=== PATIENT | female | born 1975 | race Caucasian/White ===

== ENCOUNTER 2017-11-29 10:37 | Emergency (ER) | payer OTHER ==
[2017-11-29] MEDS: SOD CHLORIDE 0.9% 1,000 ML IV (16:37)
[2017-11-29 16:59] LABS: ADD MAN DIFF? NO
[2017-11-29 17:07] LABS: WHITE BLOOD COUNT 14.4 10^3/ul (4.8-10.8)
[2017-11-29 17:07] LABS: BASOPHILS % 0.3 % (0.0-2.0); EOSINOPHILS # 0.1 10^3/ul (0.0-0.5); EOSINOPHILS % 0.5 % (0.0-7.0); HEMATOCRIT 36.9 % (37.0-47.0); HEMOGLOBIN 12.6 g/dl (12.0-16.0); LYMPHOCYTES # 1.6 10^3/ul (0.8-2.9); MEAN CORPUSCULAR HEMOGLOBIN 28.1 pg (29.0-33.0); MEAN CORPUSCULAR HGB CONC 34.1 g/dl (32.0-37.0); MEAN CORPUSCULAR VOLUME 82.2 fl (82.0-101.0); MEAN PLATELET VOLUME 10.4 fl (7.4-10.4); MONOCYTE # 0.6 10^3/ul (0.3-0.9); NEUTROPHIL # 12.1 10^3/ul (1.6-7.5); NEUTROPHILS % 83.9 % (39.0-77.0); PLATELET COUNT 254 10^3/UL (140-415); RED BLOOD COUNT 4.49 10^6/ul (4.20-5.40); RED CELL DISTRIBUTION WIDTH 13.5 % (11.5-14.5)
[2017-11-29 17:20] LABS: ALANINE AMINOTRANSFERASE 39 IU/L (13-69); ALBUMIN 4.1 g/dl (3.3-4.9); ALBUMIN/GLOBULIN RATIO 1.17; ALKALINE PHOSPHATASE 95 IU/L (42-121); ANION GAP 16 (8-16); ASPARTATE AMINO TRANSFERASE 29 IU/L (15-46); BILIRUBIN,INDIRECT 0.8 mg/dl (0-1.1); BILIRUBIN,TOTAL 0.8 mg/dl (0.2-1.3); BLOOD UREA NITROGEN 9 mg/dl (7-20); CALCIUM 8.8 mg/dl (8.4-10.2); CARBON DIOXIDE 22 mmol/L (21-31); CHLORIDE 104 mmol/L (97-110); CREATININE 0.62 mg/dl (0.44-1.00); GLUCOSE 118 mg/dl (70-220); LIPASE 86 U/L (23-300); POTASSIUM 3.7 mmol/L (3.5-5.1); SODIUM 138 mmol/L (135-144); TOTAL PROTEIN 7.6 g/dl (6.1-8.1)
[2017-11-29 19:05] LABS: ADD UMIC YES; UR ASCORBIC ACID NEGATIVE (NEGATIVE); UR BACTERIA FEW /HPF (NONE SEEN); UR BILIRUBIN (Dip) NEGATIVE (NEGATIVE); UR BLOOD (Dip) 3+ mg/dL (NEGATIVE); UR CLARITY CLOUDY (CLEAR); UR COLOR RED (YELLOW); UR GLUCOSE (Dip) NEGATIVE (NEGATIVE); UR KETONES (Dip) 1+ mg/dL (NEGATIVE); UR LEUKOCYTE ESTERASE (Dip) NEGATIVE Leu/ul (NEGATIVE); UR MUCUS MODERATE /HPF (NONE SEEN); UR NITRITE (Dip) NEGATIVE (NEGATIVE); UR RBC > 182 /HPF (0-5); UR SPECIFIC GRAVITY (Dip) 1.017 (1.003-1.030); UR TOTAL PROTEIN (Dip) 2+ mg/dl (NEGATIVE); UR UROBILINOGEN (Dip) NEGATIVE (NEGATIVE); UR WBC > 182 /HPF (0-5)
== END 2017-11-29 20:19 | disposition home or self-care (01) ==
LOC: FTE 10:37
DX: O20.9 Hemorrhage in early pregnancy, unspecified (principal); O10.012 Pre-existing essential hypertension complicating pregnancy, second trimester; O24.112 Pre-existing type 2 diabetes mellitus, in pregnancy, second trimester; Z3A.18 18 weeks gestation of pregnancy; Z79.4 Long term (current) use of insulin
CPT/HCPCS: 36415; 80053; 81001; 83690; 84702; 85025; 86900; 86901; 88305; 93005; 99285-25

== ENCOUNTER 2017-11-29 13:31 | Outpatient (CLI) | payer OTHER | END 2017-11-29 15:30 | disposition home or self-care (01) | LOC: OBT 13:31 → L-D 13:31 → OBT 15:30 | DX: O09.523 Supervision of elderly multigravida, third trimester (principal); Z3A.40 40 weeks gestation of pregnancy | CPT/HCPCS: 76805; 82962 ==

== ENCOUNTER 2019-05-05 14:41 | Inpatient (IN) | payer OTHER ==
[2019-05-05] MEDS ORDERED: MISOPROSTOL 200 MCG TAB PR (16:00)
[2019-05-05] MEDS ORDERED: LIDOCAINE 1% (MPF) 30 ML INJ INJ (16:00)
[2019-05-05] MEDS ORDERED: OXYTOCIN 30 UNITS/LR 500 ML IV (16:00)
[2019-05-05] MEDS ORDERED: METHYLERGONOVINE 0.2 MG INJ IM (16:00)
[2019-05-05] MEDS ORDERED: CARBOPROST 250 MCG INJ IM (16:00)
[2019-05-05] MEDS ORDERED: BUTORPHANOL 2 MG INJ IV ×2 (16:00)
[2019-05-05 16:39] LABS: ADD MAN DIFF? NO
[2019-05-05 16:43] LABS: WHITE BLOOD COUNT 9.3 10^3/ul (4.8-10.8)
[2019-05-05 16:43] LABS: BASOPHILS % 0.2 % (0.0-2.0); EOSINOPHILS # 0.1 10^3/ul (0.0-0.5); HEMATOCRIT 35.8 % (37.0-47.0); HEMOGLOBIN 12.4 g/dl (12.0-16.0); LYMPHOCYTES # 1.8 10^3/ul (0.8-2.9); LYMPHOCYTES % 19.5 % (15.0-51.0); MEAN CORPUSCULAR HEMOGLOBIN 28.6 pg (29.0-33.0); MEAN CORPUSCULAR HGB CONC 34.6 g/dl (32.0-37.0); MEAN CORPUSCULAR VOLUME 82.7 fl (82.0-101.0); MEAN PLATELET VOLUME 11.1 fl (7.4-10.4); MONOCYTE # 0.6 10^3/ul (0.3-0.9); NEUTROPHIL # 6.8 10^3/ul (1.6-7.5); NEUTROPHILS % 72.9 % (39.0-77.0); PLATELET COUNT 208 10^3/UL (140-415); RED BLOOD COUNT 4.33 10^6/ul (4.20-5.40)
[2019-05-05] MEDS ORDERED: DEXTROSE 5%-LR 1,000 ML IV (17:00)
[2019-05-05 17:03] LABS: PROTIME 11.2 Sec (11.9-14.9); PT RATIO 0.9
[2019-05-05 17:08] LABS: ALANINE AMINOTRANSFERASE 32 IU/L (13-69); ALBUMIN 3.5 g/dl (3.3-4.9); ALKALINE PHOSPHATASE 131 IU/L (42-121); ASPARTATE AMINO TRANSFERASE 44 IU/L (15-46); BILIRUBIN,INDIRECT 0.5 mg/dl (0-1.1); BILIRUBIN,TOTAL 0.5 mg/dl (0.2-1.3); TOTAL PROTEIN 6.9 g/dl (6.1-8.1)
[2019-05-05 17:09] LABS: ALANINE AMINOTRANSFERASE 39 IU/L (13-69); ALBUMIN 3.3 g/dl (3.3-4.9); ALBUMIN/GLOBULIN RATIO 1.06; ALKALINE PHOSPHATASE 129 IU/L (42-121); ANION GAP 11 (5-13); ASPARTATE AMINO TRANSFERASE 45 IU/L (15-46); BILIRUBIN,INDIRECT 0.5 mg/dl (0-1.1); BILIRUBIN,TOTAL 0.5 mg/dl (0.2-1.3); BLOOD UREA NITROGEN 15 mg/dl (7-20); CALCIUM 8.9 mg/dl (8.4-10.2); CARBON DIOXIDE 17 mmol/L (21-31); CHLORIDE 109 mmol/L (97-110); Estimated GFR > 60 mL/min (>60); GLUCOSE 159 mg/dl (70-220); POTASSIUM 4.2 mmol/L (3.5-5.1); SODIUM 137 mmol/L (135-144); TOTAL PROTEIN 6.4 g/dl (6.1-8.1)
[2019-05-05] MEDS: LACTATED RINGER'S 1,000 ML IV ×2 (17:09→22:28)
[2019-05-05] MEDS: AMPICILLIN 2 GM/NS (PMX) 100 ML IV (17:16)
[2019-05-05] MEDS ORDERED: ACCU-CHEK XX ×2 (19:35→21:00)
[2019-05-05] MEDS: LABETALOL 100 MG TAB PO (21:07)
[2019-05-05] MEDS: AMPICILLIN 1 GM/NS (PMX) 50 ML IV (21:08)
[2019-05-05] MEDS ORDERED: DIPHENHYDRAMINE 50 MG INJ IV (22:30)
[2019-05-05] MEDS ORDERED: NALOXONE (0.4 MG/ML) INJ IV (22:30)
[2019-05-05] MEDS ORDERED: TRIMETHOBENZAMIDE 100 MG/ML VIAL IM (22:30)
[2019-05-05] MEDS ORDERED: ONDANSETRON 4 MG INJ IV (22:30)
[2019-05-06] MEDS: LACTATED RINGER'S 1,000 ML IV ×3 (00:59→20:09)
[2019-05-06] MEDS: AMPICILLIN 1 GM/NS (PMX) 50 ML IV ×5 (01:01→17:37)
[2019-05-06] MEDS: FENTAnyl 2MCG/ML-ROPIV 0.2% 100 ML BAG EPI ×3 (03:34→17:38)
[2019-05-06] MEDS: INSULIN ASPART [NOVOLOG] 3 ML PEN SC (05:04)
[2019-05-06] MEDS: OXYTOCIN 30 UNITS/LR 500 ML IV ×3 (09:42→21:03)
[2019-05-06 15:09] LABS: RAPID PLASMA REAGIN NONREACTIVE (NR)
[2019-05-06] MEDS: MINERAL OIL LIGHT 10 ML VIAL TOP (21:04)
[2019-05-06] MEDS: LABETALOL 100 MG TAB PO ×2 (22:03→22:52)
[2019-05-06] MEDS: MISOPROSTOL 50 MCG CAPSULE PO ×3 (22:52→22:53)
[2019-05-06] MEDS: LACTATED RINGER'S 1,000 ML IV* (23:36)
[2019-05-07] MEDS ORDERED: MISOPROSTOL 200 MCG TAB PR
[2019-05-07] MEDS ORDERED: OXYTOCIN 30 UNITS/LR 500 ML IV
[2019-05-07] MEDS ORDERED: DIPHENHYDRAMINE 25 MG CAP PO
[2019-05-07] MEDS ORDERED: ACETAMINOPHEN 325 MG TAB PO
[2019-05-07] MEDS ORDERED: NACL 0.9% 3 ML SYG IV
[2019-05-07] MEDS ORDERED: CARBOPROST 250 MCG INJ IM
[2019-05-07] MEDS ORDERED: ONDANSETRON 4 MG INJ IV
[2019-05-07] MEDS ORDERED: ZOLPIDEM 5 MG TAB PO
[2019-05-07] MEDS ORDERED: morphine 2 MG INJ IV
[2019-05-07] MEDS: IBUPROFEN 600 MG TAB PO ×4 (00:19→17:52)
[2019-05-07] MEDS: WITCH HAZEL/GLYCERIN PAD PR (00:19)
[2019-05-07] MEDS: LANOLIN HPA 1 PKT TOP (00:20)
[2019-05-07] MEDS: LACTATED RINGER'S 1,000 ML IV ×2 (00:30→08:30)
[2019-05-07 00:54] LABS: HEMATOCRIT 32.6 % (37.0-47.0); HEMOGLOBIN 11.1 g/dl (12.0-16.0)
[2019-05-07] MEDS: HYDROCODONE/APAP (5/325) TAB PO (03:26)
[2019-05-07] MEDS ORDERED: LABETALOL HCL 20MG INJ IV (04:00)
[2019-05-07] MEDS: OXYTOCIN 30 UNITS/LR 500 ML IV (04:53)
[2019-05-07] MEDS: ACCU-CHEK XX ×5 (08:35→21:00)
[2019-05-07] MEDS: LACTATED RINGER'S 1,000 ML IV* (08:55)
[2019-05-07] MEDS: SENNA/DOCUSATE NA (8.6MG/50MG) TAB PO ×2 (08:56→20:45)
[2019-05-07] MEDS: metFORMIN 500 MG TAB PO ×3 (08:57→20:45)
[2019-05-07] MEDS: LABETALOL 100 MG TAB PO ×2 (08:58→20:48)
[2019-05-08] MEDS: IBUPROFEN 600 MG TAB PO ×3 (00:33→11:40)
[2019-05-08] MEDS: ACCU-CHEK XX ×2 (07:58→11:50)
[2019-05-08] MEDS: MEASLES,MUMPS,RUBELLA VACCINE INJ SC* (09:00)
[2019-05-08] MEDS: VARICELLA VACCINE LIVE/PF 1,350 UNIT/0.5 ML ML SC* (09:00)
[2019-05-08] MEDS: LABETALOL 100 MG TAB PO (09:45)
[2019-05-08] MEDS: SENNA/DOCUSATE NA (8.6MG/50MG) TAB PO (09:45)
[2019-05-08] MEDS: metFORMIN 500 MG TAB PO ×2 (09:46→13:03)
[2019-05-08] MEDS: DIPHTH/TET/ACEL PERTUSS (ADULT) 0.5 ML VIAL IM* (09:48)
== END 2019-05-08 16:14 | disposition home or self-care (01) | DRG 805 ==
LOC: L-D 14:41 → PP1 05-06 22:48 → L-D 15:25
PROC: 10E0XZZ Delivery of Products of Conception, External Approach (ICD-10-PCS; principal; 2019-05-06)
PROC: 0KQM0ZZ Repair Perineum Muscle, Open Approach (ICD-10-PCS; 2019-05-06)
DX: O10.92 Unspecified pre-existing hypertension complicating childbirth (principal); O24.12 Pre-existing type 2 diabetes mellitus, in childbirth; Z37.0 Single live birth; E11.9 Type 2 diabetes mellitus without complications; O70.1 Second degree perineal laceration during delivery; O69.81X0 Labor and delivery complicated by cord around neck, without compression, not applicable or unspecified; Z3A.38 38 weeks gestation of pregnancy
CPT/HCPCS: 62322; 76815; 80053; 80076; 82962; 85014; 85018; 85025; 85384; 85610; 85730; 86592; 86850; 86900; 86901; 90715; 90716

== ENCOUNTER 2019-07-21 18:20 | Emergency (ER) | payer OTHER ==
[2019-07-21] MEDS: DIPHENHYDRAMINE 50 MG CAP PO (19:10)
[2019-07-21] MEDS: FAMOTIDINE 20 MG TAB PO (19:10)
[2019-07-21] MEDS: predniSONE 20 MG TAB PO (19:10)
== END 2019-07-22 07:54 | disposition home or self-care (01) ==
LOC: E/R 07-22 07:54
DX: L50.0 Allergic urticaria (principal); E11.9 Type 2 diabetes mellitus without complications; I10 Essential (primary) hypertension; Z79.4 Long term (current) use of insulin
CPT/HCPCS: 99283; J7512